=== PATIENT | female | born 1975 | race American Indian/Alaskan Native ===

== ENCOUNTER 2017-03-02 00:33 | Emergency (ER) | payer SELFPAY ==
[2017-03-02 03:14] VITALS: BP 159/108
== END 2017-03-02 03:12 | disposition left against medical advice (07) ==
LOC: ED 00:33
DX: K59.00 Constipation, unspecified (principal); K92.1 Melena; Z53.21 Procedure and treatment not carried out due to patient leaving prior to being seen by health care provider

== ENCOUNTER 2017-05-04 20:16 | Emergency (ER) | payer OTHER ==
[2017-05-04 21:20] LABS: Basophils % (Auto) 0.3 % (0.0-1.8); Eosinophils % (Auto) 0.6 % (0.0-4.3); Hematocrit 39.5 % (30.3-42.9); Hemoglobin 12.6 gm/dl (10.1-14.3); Mean Corpuscular HGB Conc 32 % (30-34); Mean Corpuscular Hemoglobin 26 pg (28-32); Mean Corpuscular Volume 83 fl (79-97); Platelet Count 176 K/mm3 (140-440); Red Blood Count 4.78 M/mm3 (3.65-5.03); Red Cell Distribution Width 16.4 % (13.2-15.2); White Blood Count 8.1 K/mm3 (4.5-11.0)
[2017-05-04 21:27] LABS: Bilirubin,Urine NEG (Negative); Blood,Urine LG (Negative); Ketones,Urine NEG (Negative); Leukocyte Esterase,Urine NEG (Negative); Mucus,Urine FEW /HPF; Nitrite,Urine NEG (Negative); Protein,Urine <15 mg/dL mg/dL (Negative); Urobilinogen,Urine < 2.0 mg/dL (<2.0); WBC,Urine < 1.0 /HPF (0.0-6.0)
[2017-05-04 21:46] LABS: Alanine Aminotransferase 12 units/L (7-56); Albumin 3.9 g/dL (3.9-5); Albumin/Globulin Ratio 1.2 %; Alkaline Phosphatase 60 units/L (35-129); Anion Gap 17 mmol/L; BUN/Creatinine Ratio 14.28; Blood Urea Nitrogen 10 mg/dL (7-17); Calcium 8.7 mg/dL (8.4-10.2); Carbon Dioxide 27 mmol/L (22-30); Chloride 98.9 mmol/L (98-107); Glucose 95 mg/dL (65-100); Lipase 42 units/L (13-60); Potassium 3.6 mmol/L (3.6-5.0); Sodium 139 mmol/L (137-145); Total Protein 7.1 g/dL (6.3-8.2)
[2017-05-05] MEDS ORDERED: CARAFATE PO ONE (06:29)
[2017-05-05] MEDS ORDERED: ALUM-MAG HYDROX-SIMETH 200-200-20MG/5ML PO ONE (06:29)
[2017-05-05] MEDS ORDERED: PEPCID PO ONE (06:29)
--- NOTE | 2017-05-05 06:30 | Emergency Department Report ---
ED General Adult HPI - General Chief complaint: Abdominal Pain Stated complaint: VAG BLEEDING/ABD PAIN Time Seen by Provider: 05/05/17 06:18 Source: patient, RN notes reviewed, old records reviewed Mode of arrival: Ambulatory Limitations: No Limitations - History of Present Illness Initial comments: This is a 42-year-old female. She is previously unknown to me. She has a past medical history of ovarian fibroids/uterine fibroids. Does not have a primary care doctor. Surgical history includes cholecystectomy. Patient presents to the ER with a complaint of epigastric abdominal pain, left lower quadrant and suprapubic abdominal pain. Epigastric abdominal pain has been intermittent for the past few weeks. It has no exacerbating or relieving factors. It does not radiate anywhere. There is no right lower quadrant pain. She endorses recent vigorous sexual intercourse with her partner, does not work condoms. There is no dyspareunia. No irritative or obstructive urinary symptoms. No chest pain, no shortness of breath, no leg pain, leg swelling. Does not take oral contraceptives, and she also reports resolved vaginal bleeding. -: Gradual Location: abdomen, genitals Severity scale (0 -10): 9 Quality: aching Consistency: intermittent Improves with: none Worsens with: none Associated Symptoms: denies: confusion, chest pain, cough, loss of appetite, malaise, nausea/vomiting, shortness of breath, syncope, weakness - Related Data Home Medications Medication Instructions Recorded Confirmed Last Taken Hydrochlorothiazide [HCTZ] 25 mg PO QDAY 03/23/16 03/27/16 Unknown Lisinopril [Zestril TAB] 10 mg PO QDAY 03/23/16 03/27/16 Unknown Previous Rx's Medication Instructions Recorded Last Taken Type Ibuprofen [Motrin 800 MG tab] 800 mg PO Q8HR PRN #20 tablet 03/28/16 Unknown Rx Fluconazole [Diflucan TAB] 150 mg PO ONCE #1 tablet 05/25/16 Unknown Rx Ibuprofen [Motrin 400 MG tab] 400 mg PO Q8H PRN #10 tablet 05/25/16 Unknown Rx HYDROcodone/APAP 5-325 [[place] 1 - 2 each PO Q6HR PRN #12 tablet 07/10/16 Unknown Rx 5-325 mg TAB] Acetaminophen [Tylenol Arthritis] 650 mg PO Q6HR PRN #30 tablet.er 05/05/17 Unknown Rx Dicyclomine [Bentyl] 10 mg PO QID PRN #20 capsule 05/05/17 Unknown Rx Ondansetron [Zofran Odt] 4 mg PO QID PRN #20 tab.rapdis 05/05/17 Unknown Rx Allergies Allergy/AdvReac Type Severity Reaction Status Date / Time No Known Allergies Allergy Unverified 05/25/16 11:07 ED Review of Systems ROS: Stated complaint: VAG BLEEDING/ABD PAIN Other details as noted in HPI Constitutional: denies: fever, malaise Eyes: denies: vision change ENT: denies: epistaxis Respiratory: denies: cough Cardiovascular: denies: chest pain Gastrointestinal: abdominal pain Genitourinary: abnormal menses. denies: urgency, dysuria Musculoskeletal: denies: back pain Skin: denies: lesions Neurological: denies: weakness ED Past Medical Hx - Past Medical History Hx Hypertension: Yes Additional medical history: uterine fibroids - Surgical History Hx Cholecystectomy: Yes (03/2013) Additional Surgical History: c/s x 2. tubal ligation 2002 - Social History Smoking Status: Never Smoker Substance Use Type: None - Medications Home Medications: Home Medications Medication Instructions Recorded Confirmed Last Taken Type Hydrochlorothiazide [HCTZ] 25 mg PO QDAY 03/23/16 03/27/16 Unknown History Lisinopril [Zestril TAB] 10 mg PO QDAY 03/23/16 03/27/16 Unknown History Ibuprofen [Motrin 800 MG tab] 800 mg PO Q8HR PRN #20 tablet 03/28/16 Unknown Rx Fluconazole [Diflucan TAB] 150 mg PO ONCE #1 tablet 05/25/16 Unknown Rx Ibuprofen [Motrin 400 MG tab] 400 mg PO Q8H PRN #10 tablet 05/25/16 Unknown Rx HYDROcodone/APAP 5-325 [[place] 1 - 2 each PO Q6HR PRN #12 tablet 07/10/16 Unknown Rx 5-325 mg TAB] Acetaminophen [Tylenol Arthritis] 650 mg PO Q6HR PRN #30 tablet.er 05/05/17 Unknown Rx Dicyclomine [Bentyl] 10 mg PO QID PRN #20 capsule 05/05/17 Unknown Rx Ondansetron [Zofran Odt] 4 mg PO QID PRN #20 tab.rapdis 05/05/17 Unknown Rx ED Physical Exam - General Limitations: No Limitations General appearance: alert, in no apparent distress - Head Head exam: Present: atraumatic, normocephalic - Eye Eye exam: Present: normal appearance, EOMI. Absent: nystagmus - ENT ENT exam: Present: normal exam, normal orophraynx, mucous membranes moist - Neck Neck exam: Present: normal inspection, full ROM. Absent: tenderness, meningismus - Respiratory Respiratory exam: Present: normal lung sounds bilaterally. Absent: respiratory distress, wheezes, rales, rhonchi, stridor, chest wall tenderness, accessory muscle use, decreased breath sounds, prolonged expiratory - Cardiovascular Cardiovascular Exam: Present: regular rate, normal rhythm, normal heart sounds. Absent: bradycardia, tachycardia, irregular rhythm, systolic murmur, diastolic murmur, rubs, gallop - GI/Abdominal GI/Abdominal exam: Present: soft, normal bowel sounds, other (there is minimal epigastric tenderness, there is left lower quadrant tenderness. There is no rebound, guarding or peritoneal signs). Absent: distended, guarding, rebound, rigid, pulsatile mass - External exam: Present: normal external exam Speculum exam: Present: vaginal bleeding. Absent: cervical discharge Bi-manual exam: Present: normal bi-manual exam, other (escorted by nurse JORDIN CHA). Absent: cervical motion tendernes, adnexal tenderness, adnexal mass, uterine enlargement, uterine tenderness - Extremities Exam Extremities exam: Present: normal inspection, full ROM, normal capillary refill. Absent: pedal edema, joint swelling, calf tenderness - Back Exam Back exam: Present: normal inspection, full ROM. Absent: tenderness, CVA tenderness (R), CVA tenderness (L), muscle spasm, paraspinal tenderness, vertebral tenderness - Neurological Exam Neurological exam: Present: alert, oriented X3, normal gait, other (Extraocular movements intact. Tongue midline. No facial droop. Facial sensation intact to light touch in the V1, V2, V3 distribution bilaterally. 5 and 5 strength in 4 extremities.. Sensation is intact to light touch in 4 extremities.). Absent : motor sensory deficit - Psychiatric Psychiatric exam: Present: normal affect, normal mood - Skin Skin exam: Present: warm, dry, intact, normal color. Absent: rash ED Course Vital Signs 05/04/17 05/05/17 05/05/17 20:33 03:47 04:37 Temperature 98.7 F 98.7 F 98.3 F Pulse Rate 90 84 73 Respiratory 17 18 18 Rate Blood Pressure 158/114 159/112 Blood Pressure [Left] Blood Pressure 156/84 [Right] O2 Sat by Pulse 99 100 99 Oximetry 05/05/17 05/05/17 05:17 07:20 Temperature 97.9 F Pulse Rate 82 Respiratory 18 20 Rate Blood Pressure Blood Pressure 162/96 [Left] Blood Pressure [Right] O2 Sat by Pulse 98 100 Oximetry ED Medical Decision Making - Lab Data Result diagrams: 05/04/17 20:52 05/04/17 20:48 Vital Signs 05/04/17 05/05/17 05/05/17 20:33 03:47 04:37 Temperature 98.7 F 98.7 F 98.3 F Pulse Rate 90 84 73 Respiratory 17 18 18 Rate Blood Pressure 158/114 159/112 Blood Pressure [Left] Blood Pressure 156/84 [Right] O2 Sat by Pulse 99 100 99 Oximetry 05/05/17 05/05/17 05:17 07:20 Temperature 97.9 F Pulse Rate 82 Respiratory 18 20 Rate Blood Pressure Blood Pressure 162/96 [Left] Blood Pressure [Right] O2 Sat by Pulse 98 100 Oximetry Lab Results 05/04/17 05/04/17 05/04/17 Range/Units 20:48 20:52 20:55 WBC 8.1 (4.5-11.0) K/mm3 RBC 4.78 (3.65-5.03) M/mm3 Hgb 12.6 (10.1-14.3) gm/dl Hct 39.5 (30.3-42.9) % MCV 83 (79-97) fl MCH 26 L (28-32) pg MCHC 32 (30-34) % RDW 16.4 H (13.2-15.2) % Plt Count 176 (140-440) K/mm3 Lymph % (Auto) 30.9 (13.4-35.0) % [place] % (Auto) 5.7 (0.0-7.3) % Eos % (Auto) 0.6 (0.0-4.3) % Baso % (Auto) 0.3 (0.0-1.8) % Lymph # 2.5 (1.2-5.4) K/mm3 [place] # 0.5 (0.0-0.8) K/mm3 Eos # 0.1 (0.0-0.4) K/mm3 Baso # 0.0 (0.0-0.1) K/mm3 Seg Neutrophils % 62.5 (40.0-70.0) % Seg Neutrophils # 5.1 (1.8-7.7) K/mm3 Sodium 139 (137-145) mmol/L Potassium 3.6 (3.6-5.0) mmol/L Chloride 98.9 (98-107) mmol/L Carbon Dioxide 27 (22-30) mmol/L Anion Gap 17 mmol/L BUN 10 (7-17) mg/dL Creatinine 0.7 (0.7-1.2) mg/dL Estimated GFR > 60 ml/min BUN/Creatinine Ratio 14.28 % Glucose 95 (65-100) mg/dL Calcium 8.7 (8.4-10.2) mg/dL Total Bilirubin 0.30 (0.1-1.2) mg/dL AST 18 (5-40) units/L ALT 12 (7-56) units/L Alkaline Phosphatase 60 (35-129) units/L Total Protein 7.1 (6.3-8.2) g/dL Albumin 3.9 (3.9-5) g/dL Albumin/Globulin Ratio 1.2 % Lipase 42 (13-60) units/L Urine Color Straw (Yellow) Urine Turbidity Clear (Clear) Urine pH 8.0 H (5.0-7.0) Ur Specific [place] 1.009 (1.003-1.030) Urine Protein <15 mg/dl (Negative) mg/dL Urine Glucose (UA) Neg (Negative) mg/dL Urine Ketones Neg (Negative) mg/dL Urine Blood Lg (Negative) Urine Nitrite Neg (Negative) Urine Bilirubin Neg (Negative) Urine Urobilinogen < 2.0 (<2.0) mg/dL Ur Leukocyte Esterase Neg (Negative) Urine WBC (Auto) < 1.0 (0.0-6.0) /HPF Urine RBC (Auto) 2.0 (0.0-6.0) /HPF U Epithel Cells (Auto) 1.0 (0-13.0) /HPF Urine Mucus Few /HPF Urine HCG, Qual Negative (Negative) - EKG Data -: EKG Interpreted by Me EKG shows normal: sinus rhythm Rate: normal - EKG Data When compared to previous EKG there are: no significant change Interpretation: no acute changes 05/05/17 07:34 normal sinus, 71 bpm, high left ventricular voltage, not morphologically consistent with STEMI, appears unchanged when compared to prior EKG from 2016. - Medical Decision Making Differential diagnosis: GERD, reflux, gastritis, pelvic inflammatory disease, constipation, urinary tract infection, ovarian cyst Dysfunctional uterine bleeding, uterine fibroids Assessment and plan: 41-year-old female with a complaint of epigastric pain, left lower quadrant abdominal pain, vaginal bleeding. She is afebrile with reassuring vital signs, with the exception of elevated blood pressure. No pulmonary embolus or DVT risk factors, low risk by well's criteria, perc negative. No right lower quadrant tenderness, she reports that she is defecating and urinating normally. The urinalysis is not consistent with urinary tract infection, and she felt improved after symptomatic therapy. Patient has already had an ultrasound at this facility within the past year, demonstrating uterine fibroids. 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 I don't believe the patient requires advanced imaging at this time. Her physical examination is not consistent with pelvic inflammatory disease. Low suspicion for acute coronary syndrome, low risk by Srini and heart score. The patient will be discharged with nonnarcotic pain medication, and she can follow up with her outpatient primary care doctor or fitting room maintenance mechanic. Return precautions are reviewed. Critical care attestation.: If time is entered above; I have spent that time in minutes in the direct care of this critically ill patient, excluding procedure time. ED Disposition Clinical Impression: Abdominal pain Disposition: DC-01 TO HOME OR SELFCARE Is pt being admited?: No Does the pt Need Aspirin: No Condition: Stable Instructions: Abdominal Pain (ED) Additional Instructions: Cultures were sent today, results will be available in the next 3-5 days. Have your primary care doctor or fitting room maintenance mechanic contact medical records department to obtain culture results. Avoid consumption of heavy/spicy foods. Avoid consumption of alcohol, Motrin, Naprosyn, ibuprofen, Aleve. Take the prescribed medications as required/directed. Follow-up with the primary care doctor or fitting room maintenance mechanic within the next 14 days. Return to the ER right away with new pain, worsened pain, migration of pain, fevers, chills, chest pain, confusion, intractable nausea or vomiting, inability to tolerate liquid feeds. Prescriptions: Acetaminophen [Tylenol Arthritis] 650 mg PO Q6HR PRN #30 tablet.er PRN Reason: Pain Dicyclomine [Bentyl] 10 mg PO QID PRN #20 capsule PRN Reason: Pain Ondansetron [Zofran Odt] 4 mg PO QID PRN #20 tab.rapdis PRN Reason: Nausea Referrals: ULI EPPERSON DO [Other] - 3-5 Days [facility] [Provider Group] - 3-5 Days Forms: Work/School Release Form(ED)
[2017-05-05 07:25] VITALS: BP 162/96
== END 2017-05-05 08:00 | disposition home or self-care (01) ==
LOC: ED 20:16
DX: R10.13 Epigastric pain (principal); R10.32 Left lower quadrant pain; I10 Essential (primary) hypertension
CPT/HCPCS: 36415; 80053; 81001; 81025; 83690; 85025; 87210; 87591; 93005; 93010; 99284

== ENCOUNTER 2020-01-10 02:09 | Emergency (ER) | payer OTHER ==
[2020-01-10] MEDS ORDERED: KETOROLAC 60 MG/2 ML INJ IM ONE (02:21)
[2020-01-10] MEDS ORDERED: predniSONE 20 MG TAB PO ONE (02:21)
--- NOTE | 2020-01-10 02:52 | XRay Report ---
LUMBAR SPINE, 2 VIEWS INDICATION / CLINICAL INFORMATION: Right lower back pain radiating to the right leg.. COMPARISON: None available. FINDINGS: Vertebral body heights and disc spaces are well-preserved. Alignment is normal. No fracture or signif icant degenerative change identified. IMPRESSION: No significant osseous abnormality. Signer Name: Ashley Muir MD Signed: 01/10/2020 2:48 AM Workstation Name: [id number]
--- NOTE | 2020-01-10 03:00 | Emergency Department Report ---
ED Back Pain/Injury HPI - General Chief Complaint: Back Pain/Injury Stated Complaint: BACK/LEG/LEFT SIDE PAIN Time Seen by Provider: 01/10/20 02:17 Source: patient Limitations: No Limitations - History of Present Illness Initial Comments: This is a 44-year-old female nontoxic, well nourished in appearance, no acute signs of distress presents to the ED with c/o of acute lower back pain. Patient stated that the past 3 months ago she had a ground level trip and fall and landed on her lower back. Patient states has history of sciatica nerve pain which is similar symptoms as today. Patient states that pain radiates through to his right lower extremity. Patient denies any other injuries or trauma. Denies any bladder or bowel instability. Patient denies any urinary symptoms. Denies any fever, chills, nausea, vomiting, headache, stiff neck, chest pain or shortness of breath. Patient denies any numbness or tingling. Denies any allergies. PMH includes HTN and she takes lisinopril and HCTZ and follows a primary care doctor for this. MD Complaint: back pain, fall -: month(s) Similar Symptoms Previously: Yes Radiation: right leg Severity: mild Severity scale (0 -10): 8 Quality: aching Consistency: intermittent Improves With: immobilization, sitting upright Worsens With: movement, walking Associated Symptoms: denies other symptoms. denies: confusion, weakness, chest pain, numbness, difficulty walking, cough, difficulty urinating, diaphoresis, incontinence, fever/chills, constipation, headaches, abdominal pain, loss of appetite, malaise, nausea/vomiting, rash, seizure, shortness of breath, syncope - Related Data Home Medications Medication Instructions Recorded Confirmed Last Taken hydroCHLOROthiazide [HCTZ] 25 mg PO QDAY 03/23/16 03/27/16 Unknown lisinopriL [Zestril TAB] 10 mg PO QDAY 03/23/16 03/27/16 Unknown Previous Rx's Medication Instructions Recorded Last Taken Type Ibuprofen [Motrin 800 MG tab] 800 mg PO Q8HR PRN #20 tablet 03/28/16 Unknown Rx Ibuprofen [Motrin 400 MG tab] 400 mg PO Q8H PRN #10 tablet 05/25/16 Unknown Rx HYDROcodone/APAP 5-325 [[place] 1 - 2 each PO Q6HR PRN #12 tablet 07/10/16 Unknown Rx 5-325 mg TAB] Ondansetron [Zofran Odt] 4 mg PO QID PRN #20 tab.rapdis 05/05/17 Unknown Rx Cyclobenzaprine [Flexeril] 10 mg PO TID PRN #10 tablet 07/26/18 Unknown Rx Naproxen Sodium [Aleve TAB] 220 mg PO Q8H PRN #12 tablet 07/26/18 Unknown Rx methylPREDNISolone [Medrol] 4 mg PO DAILY #1 tab.ds.pk 07/26/18 Unknown Rx Cyclobenzaprine [Flexeril] 10 mg PO QHS PRN #10 tablet 01/10/20 Unknown Rx Naproxen 500 mg PO Q12H PRN #12 tablet 01/10/20 Unknown Rx Allergies Allergy/AdvReac Type Severity Reaction Status Date / Time No Known Allergies Allergy Verified 01/10/20 02:13 ED Review of Systems ROS: Stated complaint: BACK/LEG/LEFT SIDE PAIN Other details as noted in HPI Constitutional: denies: chills, fever Eyes: denies: eye pain, eye discharge, vision change ENT: denies: ear pain, throat pain Respiratory: denies: cough, shortness of breath, wheezing Cardiovascular: denies: chest pain, palpitations Endocrine: no symptoms reported Gastrointestinal: denies: abdominal pain, nausea, diarrhea Genitourinary: denies: urgency, dysuria, discharge Musculoskeletal: back pain. denies: joint swelling, arthralgia Skin: denies: rash, lesions Neurological: denies: headache, weakness, paresthesias Psychiatric: denies: anxiety, depression Hematological/Lymphatic: denies: easy bleeding, easy bruising ED Past Medical Hx - Past Medical History Previous Medical History?: Yes Hx Hypertension: Yes Additional medical history: uterine fibroids - Surgical History Past Surgical History?: Yes Hx Cholecystectomy: Yes (03/2013) Additional Surgical History: c/s x 2. tubal ligation 2002 - Social History Smoking Status: Never Smoker Substance Use Type: None - Medications Home Medications: Home Medications Medication Instructions Recorded Confirmed Last Taken Type hydroCHLOROthiazide [HCTZ] 25 mg PO QDAY 03/23/16 03/27/16 Unknown History lisinopriL [Zestril TAB] 10 mg PO QDAY 03/23/16 03/27/16 Unknown History Ibuprofen [Motrin 800 MG tab] 800 mg PO Q8HR PRN #20 tablet 03/28/16 Unknown Rx Ibuprofen [Motrin 400 MG tab] 400 mg PO Q8H PRN #10 tablet 05/25/16 Unknown Rx HYDROcodone/APAP 5-325 [[place] 1 - 2 each PO Q6HR PRN #12 tablet 07/10/16 Unknown Rx 5-325 mg TAB] Ondansetron [Zofran Odt] 4 mg PO QID PRN #20 tab.rapdis 05/05/17 Unknown Rx Cyclobenzaprine [Flexeril] 10 mg PO TID PRN #10 tablet 07/26/18 Unknown Rx Naproxen Sodium [Aleve TAB] 220 mg PO Q8H PRN #12 tablet 07/26/18 Unknown Rx methylPREDNISolone [Medrol] 4 mg PO DAILY #1 tab.ds.pk 07/26/18 Unknown Rx Cyclobenzaprine [Flexeril] 10 mg PO QHS PRN #10 tablet 01/10/20 Unknown Rx Naproxen 500 mg PO Q12H PRN #12 tablet 01/10/20 Unknown Rx ED Physical Exam - General Limitations: No Limitations General appearance: alert, in no apparent distress - Head Head exam: Present: atraumatic, normocephalic - Eye Eye exam: Present: normal appearance - Neck Neck exam: Present: normal inspection, full ROM. Absent: tenderness, meningismus, lymphadenopathy - GI/Abdominal GI/Abdominal exam: Present: soft, normal bowel sounds. Absent: distended, tenderness, guarding, rebound, rigid, diminished bowel sounds - Extremities Exam Extremities exam: Present: normal inspection, full ROM, normal capillary refill. Absent: tenderness, joint swelling - Back Exam Back exam: Present: normal inspection, full ROM, paraspinal tenderness (lumbar paraspinal). Absent: tenderness, CVA tenderness (R), CVA tenderness (L), muscle spasm, vertebral tenderness, rash noted - Expanded Back Exam Expanded Back exam: Absent: saddle anesthesia Back exam: Negative Straight Leg Raising: Left, Right - Neurological Exam Neurological exam: Present: alert, oriented X3, normal gait - Psychiatric Psychiatric exam: Present: normal affect, normal mood - Skin Skin exam: Present: warm, dry, intact, normal color. Absent: rash ED Course Vital Signs 04/20/20 04/20/20 02:10 02:32 Temperature 98.1 F Pulse Rate 79 Respiratory 16 19 Rate Blood Pressure 178/108 O2 Sat by Pulse 100 Oximetry - Reevaluation(s) Reevaluation #1: 01/10/20 03:03 Patient is speaking in full sentences with no signs of distress noted. ED Medical Decision Making - Medical Decision Making This is a 44-year-old male that presents with low back strain. Patient is stable was examined by me. There is no spinal tenderness. There is no cauda equina syndrome during examination. No bladder or bowel instability. Xrays are unremarkable and dictated by the radiologist. Patient is notified of the xray results with no questions noted by the patient. Patient received Toradol 60 mg IM and prednisone in the ED which stated that her symptoms has resolved and subsided. Patient is discharged with muscle relaxant and Motrin. Patient was instructed not to operate any machinery while taking muscle relaxant as they cause her drowsiness. Patient was referred to Follow-up with a primary care doctor in 3-5 days or if symptoms worsen and continue return to emergency room as soon as possible. At time of discharge, the patient does not seem toxic or ill in appearance. No acute signs of distress noted. Patient agrees to discharge treatment plan of care. No further questions noted by the patient. Patient was notified about her blood pressure and was instructed to follow-up with PCP for further evaluation and treatment. According to ACEP: (1) in ED patients with asymptomatic markedly elevated blood pressure, routine screening for acute target organ injury (eg, serum creatinine, urinalysis, ECG) is not required. (1) In patients with asymptomatic markedly elevated blood pressure, routine ED medical intervention is not required. This chart is dictated with using [employer] Dictation Program. Critical care attestation.: If time is entered above; I have spent that time in minutes in the direct care of this critically ill patient, excluding procedure time. ED Disposition Clinical Impression: Low back strain Qualifiers: Encounter type: initial encounter Qualified Code(s): S39.012A - Strain of muscle, fascia and tendon of lower back, initial encounter Disposition: TO HOME OR SELFCARE Is pt being admited?: No Does the pt Need Aspirin: No Condition: Stable Instructions: Cyclobenzaprine (By mouth), Low Back Strain (ED) Additional Instructions: Follow-up with your primary care doctor in 3-5 days or if symptoms worsen such as bladder or bowel stability, chest pain, short of breath, numbness or tingling sensation in extremities, headache, dizziness, visual changes, nausea vomiting, or abdominal pain, return back to emergency room as was possible. Take Naproxen and Flexeril as prescribed. Do not operate heavy machinery while taking Flexeril due to sedation Prescriptions: Cyclobenzaprine [Flexeril] 10 mg PO QHS PRN #10 tablet PRN Reason: Muscle Spasm Naproxen 500 mg PO Q12H PRN #12 tablet PRN Reason: Pain , Severe (7-10) Referrals: PRIMARY CAREMD [Primary Care Provider] - 3-5 Days DHARA MCKEON MD [Staff Physician] - 3-5 Days [facility] [Provider Group] - 3-5 Days Forms: Work/School Release Form(ED)
[2020-01-10 03:28] VITALS: BP 194/117
== END 2020-01-10 03:26 | disposition home or self-care (01) ==
LOC: ED 02:09
DX: S39.012A Strain of muscle, fascia and tendon of lower back, initial encounter (principal); I10 Essential (primary) hypertension; Z90.49 Acquired absence of other specified parts of digestive tract; Z98.51 Tubal ligation status; W18.30XA Fall on same level, unspecified, initial encounter; Y93.89 Activity, other specified; Y92.89 Other specified places as the place of occurrence of the external cause; Y99.8 Other external cause status
CPT/HCPCS: 72100; 96372; 99283; J1885; J7512

== ENCOUNTER 2020-06-02 21:34 | Emergency (ER) | payer OTHER ==
[2020-06-02 22:21] VITALS: BP 143/92
[2020-06-02] MEDS ORDERED: KETOROLAC 30 MG/1 ML INJ IM ONE (23:03)
[2020-06-02] MEDS ORDERED: dexAMETHasone 20 MG/5 ML VIAL IM ONE (23:03)
[2020-06-02] MEDS ORDERED: ONDANSETRON 4 MG ODT TAB PO ONE (23:04)
[2020-06-02] MEDS ORDERED: oxyCODONE /ACETAMINOPHEN 5-325MG TAB PO ONE (23:04)
--- NOTE | 2020-06-03 00:03 | Emergency Department Report ---
ED Back Pain/Injury HPI - General Chief Complaint: Back Pain/Injury Stated Complaint: ELEVATED BLOOD PRESSURE, BACK AND RIGHT LEG PAIN Source: patient Limitations: No Limitations - History of Present Illness Initial Comments: Patient is a 44-year-old -Spanish female with a history of chronic low back pain and hypertension who presents to the ED with complaint of acute exacerbation of her chronic low back pain that radiates to the right leg for the last 3 days. Patient states that she has been taking her regular pain medications at home with no relief. Patient states that she works at [employer] and does perform heavy lifting and that this usually aggravates her pain. Patient states that she was evaluated by her primary care physician 3 days ago and was supposed to get injection of her lumbar spine but was not done because her blood pressure was high. Patient states that in the last 2 days her pain has worsened such that the medications have not worked and no matter the position or physical activity the pain is constant and persistent. Patient denies fall, traumatic injury, heavy lifting, dysuria, urinary frequency and urgency, abdominal pain, hematuria, numbness and tingling or weakness of lower extremities bilaterally, urinary or bowel incontinence, saddle paresthesia, chest pain or shortness of breath and abdominal pain. MD Complaint: back pain (chronic low back pain with sciatica), other (low back pain that radiates to right leg) -: Gradual, year(s) (many years) Similar Symptoms Previously: Yes Place: home Radiation: right leg Severity: severe Severity scale (0 -10): 8 Quality: sharp, aching Consistency: constant Improves With: none Worsens With: movement, sitting upright, walking Context: while lifting, turning/twisting, bending, other (chronic lumbar disc herniation) Associated Symptoms: denies other symptoms. denies: confusion, weakness, chest pain, numbness, difficulty walking, cough, difficulty urinating, diaphoresis, incontinence, fever/chills, constipation, headaches, abdominal pain, loss of appetite, malaise, nausea/vomiting, rash, seizure, shortness of breath, syncope Treatments Prior to Arrival: NSAIDS - Related Data Home Medications Medication Instructions Recorded Confirmed Last Taken hydroCHLOROthiazide [HCTZ] 25 mg PO QDAY 03/23/16 03/27/16 Unknown lisinopriL [Zestril TAB] 10 mg PO QDAY 03/23/16 03/27/16 Unknown Previous Rx's Medication Instructions Recorded Last Taken Type Ibuprofen [Motrin 800 MG tab] 800 mg PO Q8HR PRN #20 tablet 03/28/16 Unknown Rx Ibuprofen [Motrin 400 MG tab] 400 mg PO Q8H PRN #10 tablet 05/25/16 Unknown Rx HYDROcodone/APAP 5-325 [[place] 1 - 2 each PO Q6HR PRN #12 tablet 07/10/16 Unknown Rx 5-325 mg TAB] Ondansetron [Zofran Odt] 4 mg PO QID PRN #20 tab.rapdis 05/05/17 Unknown Rx Cyclobenzaprine [Flexeril] 10 mg PO TID PRN #10 tablet 07/26/18 Unknown Rx Naproxen Sodium [Aleve TAB] 220 mg PO Q8H PRN #12 tablet 07/26/18 Unknown Rx methylPREDNISolone [Medrol] 4 mg PO DAILY #1 tab.ds.pk 07/26/18 Unknown Rx Cyclobenzaprine [Flexeril] 10 mg PO QHS PRN #10 tablet 01/10/20 Unknown Rx Gabapentin 300 mg PO Q12H PRN #60 cap 06/03/20 Unknown Rx Naproxen 500 mg PO Q12H PRN #30 tablet 06/03/20 Unknown Rx methOCARBAMOL [Robaxin TAB] 500 mg PO Q12H PRN #30 tablet 06/03/20 Unknown Rx predniSONE [Deltasone] 60 mg PO QDAY #15 tab 06/03/20 Unknown Rx traMADoL [Ultram] 50 mg PO Q6HR PRN #12 tablet 06/03/20 Unknown Rx Allergies Allergy/AdvReac Type Severity Reaction Status Date / Time No Known Allergies Allergy Verified 01/10/20 02:13 ED Review of Systems ROS: Stated complaint: ELEVATED BLOOD PRESSURE, BACK AND RIGHT LEG PAIN Other details as noted in HPI Constitutional: denies: chills, fever Eyes: denies: eye pain, eye discharge, vision change ENT: denies: ear pain, throat pain Respiratory: denies: cough, shortness of breath, wheezing Cardiovascular: denies: chest pain, palpitations Endocrine: no symptoms reported Gastrointestinal: denies: abdominal pain, nausea, diarrhea Genitourinary: denies: urgency, dysuria, discharge Musculoskeletal: back pain (lower back pain), arthralgia (right thigh pain). denies: joint swelling Skin: denies: rash, lesions Neurological: denies: headache, weakness, paresthesias Psychiatric: denies: anxiety, depression Hematological/Lymphatic: denies: easy bleeding, easy bruising ED Past Medical Hx - Past Medical History Previous Medical History?: Yes Hx Hypertension: Yes Additional medical history: uterine fibroids,. Sciatica, Chronic Back pain (3 buldging disc) - Surgical History Past Surgical History?: Yes Hx Cholecystectomy: Yes (03/2013) Additional Surgical History: c/s x 2. tubal ligation 2002 - Social History Smoking Status: Never Smoker Substance Use Type: None - Medications Home Medications: Home Medications Medication Instructions Recorded Confirmed Last Taken Type hydroCHLOROthiazide [HCTZ] 25 mg PO QDAY 03/23/16 03/27/16 Unknown History lisinopriL [Zestril TAB] 10 mg PO QDAY 03/23/16 03/27/16 Unknown History Ibuprofen [Motrin 800 MG tab] 800 mg PO Q8HR PRN #20 tablet 03/28/16 Unknown Rx Ibuprofen [Motrin 400 MG tab] 400 mg PO Q8H PRN #10 tablet 05/25/16 Unknown Rx HYDROcodone/APAP 5-325 [[place] 1 - 2 each PO Q6HR PRN #12 tablet 07/10/16 Unknown Rx 5-325 mg TAB] Ondansetron [Zofran Odt] 4 mg PO QID PRN #20 tab.rapdis 05/05/17 Unknown Rx Cyclobenzaprine [Flexeril] 10 mg PO TID PRN #10 tablet 07/26/18 Unknown Rx Naproxen Sodium [Aleve TAB] 220 mg PO Q8H PRN #12 tablet 07/26/18 Unknown Rx methylPREDNISolone [Medrol] 4 mg PO DAILY #1 tab.ds.pk 07/26/18 Unknown Rx Cyclobenzaprine [Flexeril] 10 mg PO QHS PRN #10 tablet 01/10/20 Unknown Rx Gabapentin 300 mg PO Q12H PRN #60 cap 06/03/20 Unknown Rx Naproxen 500 mg PO Q12H PRN #30 tablet 06/03/20 Unknown Rx methOCARBAMOL [Robaxin TAB] 500 mg PO Q12H PRN #30 tablet 06/03/20 Unknown Rx predniSONE [Deltasone] 60 mg PO QDAY #15 tab 06/03/20 Unknown Rx traMADoL [Ultram] 50 mg PO Q6HR PRN #12 tablet 06/03/20 Unknown Rx ED Physical Exam - General Limitations: No Limitations General appearance: alert, in no apparent distress - Head Head exam: Present: atraumatic, normocephalic, normal inspection - Eye Eye exam: Present: normal appearance, PERRL, EOMI Pupils: Present: normal accommodation - ENT ENT exam: Present: normal exam, normal orophraynx, mucous membranes moist, TM's normal bilaterally, normal external ear exam - Neck Neck exam: Present: normal inspection, full ROM - Respiratory Respiratory exam: Present: normal lung sounds bilaterally. Absent: respiratory distress, wheezes, rales, rhonchi, chest wall tenderness, accessory muscle use, decreased breath sounds, prolonged expiratory - Cardiovascular Cardiovascular Exam: Present: regular rate, normal rhythm, normal heart sounds. Absent: systolic murmur, diastolic murmur, rubs, gallop - GI/Abdominal GI/Abdominal exam: Present: soft, normal bowel sounds. Absent: tenderness, guarding, rebound, hyperactive bowel sounds, hypoactive bowel sounds - Extremities Exam Extremities exam: Present: normal inspection, full ROM, tenderness (Palpable right hip and thigh tenderness), normal capillary refill - Back Exam Back exam: Present: normal inspection, full ROM, tenderness (Palpable lumbosacral paraspinal musculoskeletal tenderness), muscle spasm, paraspinal tenderness. Absent: CVA tenderness (R), vertebral tenderness - Neurological Exam Neurological exam: Present: alert, oriented X3, CN II-XII intact, normal gait, reflexes normal - Psychiatric Psychiatric exam: Present: normal affect, normal mood - Skin Skin exam: Present: warm, dry, intact, normal color. Absent: rash ED Course Vital Signs 06/02/20 22:19 Temperature 98.2 F Pulse Rate 63 Respiratory 16 Rate Blood Pressure 143/92 O2 Sat by Pulse 100 Oximetry ED Medical Decision Making - Medical Decision Making This is a 44-year-old -Spanish female with a history of chronic low back pain and hypertension who presents to the ED with complaint of acute exacerbation of her chronic low back pain that radiates to the right leg for the last 3 days. Patient states that she has been taking her regular pain medications at home with no relief. Patient states that she works at [employer] and does perform heavy lifting and that this usually aggravates her pain. Patient states that she was evaluated by her primary care physician 3 days ago and was supposed to get injection of her lumbar spine but was not done because her blood pressure was high. Patient states that in the last 2 days her pain has worsened such that the medications have not worked and no matter the position or physical activity the pain is constant and persistent. In the ED, patient is alert and oriented x3 and is not in distress but appears to be in significant pain. Patient was treated in the ED for pain and on reevaluation, patient's pain is well controlled medications. Patient will discharge home on medications and advised to follow-up with her primary care physician in 5 to 7 days for reevaluation or return to the ED immediately if symptoms get worse. - Differential Diagnosis Sciatica; Chronic low back pain; muscle spasm Critical care attestation.: If time is entered above; I have spent that time in minutes in the direct care of this critically ill patient, excluding procedure time. ED Disposition Clinical Impression: Spasm of muscle of lower back Chronic low back pain with right-sided sciatica Qualifiers: Back pain laterality: right Qualified Code(s): M54.41 - Lumbago with sciatica, right side; G89.29 - Other chronic pain Disposition: DC-01 TO HOME OR SELFCARE Is pt being admited?: No Does the pt Need Aspirin: No Condition: Stable Instructions: Lumbar Radiculopathy (ED), Muscle Spasm (ED), Chronic Back Pain (ED) Additional Instructions: Take medications with food, drink plenty of fluids and follow-up with your primary care physician in 7 to 10 days for reevaluation. Return to the ED immediately if symptoms get worse. Prescriptions: predniSONE [Deltasone] 60 mg PO QDAY #15 tab Gabapentin 300 mg PO Q12H PRN #60 cap PRN Reason: Muscle Spasm Naproxen 500 mg PO Q12H PRN #30 tablet PRN Reason: Pain , Severe (7-10) methOCARBAMOL [Robaxin TAB] 500 mg PO Q12H PRN #30 tablet PRN Reason: Muscle Spasm traMADoL [Ultram] 50 mg PO Q6HR PRN #12 tablet PRN Reason: Pain Referrals: DHARA MCKEON MD [Staff Physician] - 3-5 Days Forms: Work/School Release Form(ED) Time of Disposition: 00:05 Print Language: [place]
== END 2020-06-03 00:50 | disposition home or self-care (01) ==
LOC: ED 21:34
DX: M62.830 Muscle spasm of back (principal); M54.41 Lumbago with sciatica, right side; G89.29 Other chronic pain; I10 Essential (primary) hypertension; Z98.51 Tubal ligation status; Z90.49 Acquired absence of other specified parts of digestive tract; Z79.899 Other long term (current) drug therapy
CPT/HCPCS: 96372; 99282; J1100; J1885; Q0162

== ENCOUNTER 2020-11-16 02:54 | Emergency (ER) | payer OTHER ==
[2020-11-16] MEDS ORDERED: GABAPENTIN 300 MG CAP PO ONE (03:26)
[2020-11-16] MEDS ORDERED: KETOROLAC 30 MG/1 ML INJ IM ONE (03:26)
[2020-11-16] MEDS ORDERED: dexAMETHasone 20 MG/5 ML VIAL IM ONE (03:26)
--- NOTE | 2020-11-16 04:49 | Emergency Department Report ---
ED Back Pain/Injury HPI - General Chief Complaint: Back Pain/Injury Stated Complaint: LOWER BACK/LEG MUSCLE SPASM/HIGH BP Source: patient Limitations: No Limitations - History of Present Illness Initial Comments: Patient is a 45-year-old -[place] female with a history of chronic low back pain and sciatica due to degenerative lumbar disc disease and hypertension who presents to the ED with acute exacerbation of her chronic low back pain that radiates to the lower extremities bilaterally for the last 1 week. Patient denies dizziness, syncope, dysuria, urinary frequency and urgency, chest pain, shortness of breath, abdominal pain, vaginal bleeding, vaginal discharge, cough, change in vision or fall, heavy lifting and traumatic injury. MD Complaint: back pain, other (bilateral lower extremity numbness and tingling) -: Gradual, month(s) (6) Similar Symptoms Previously: Yes (chronic sciatica) Place: home Radiation: left leg, right leg Severity: severe Severity scale (0 -10): 9 Quality: sharp, aching Consistency: constant Improves With: none Worsens With: movement, walking Context: while lifting, turning/twisting, fall Associated Symptoms: denies other symptoms. denies: confusion, weakness, chest pain, numbness, difficulty walking, cough, difficulty urinating, diaphoresis, incontinence, fever/chills, constipation, headaches, abdominal pain, loss of appetite, malaise, nausea/vomiting, rash, seizure, shortness of breath, syncope, other - Related Data Home Medications Medication Instructions Recorded Confirmed Last Taken hydroCHLOROthiazide [HCTZ] 25 mg PO QDAY 03/23/16 03/27/16 Unknown lisinopriL [Zestril TAB] 10 mg PO QDAY 03/23/16 03/27/16 Unknown Previous Rx's Medication Instructions Recorded Last Taken Type Ibuprofen [Motrin 400 MG tab] 400 mg PO Q8H PRN #10 tablet 05/25/16 Unknown Rx HYDROcodone/APAP 5-325 [[place] 1 - 2 each PO Q6HR PRN #12 tablet 07/10/16 Unknown Rx 5-325 mg TAB] Ondansetron [Zofran Odt] 4 mg PO QID PRN #20 tab.rapdis 05/05/17 Unknown Rx Cyclobenzaprine [Flexeril] 10 mg PO TID PRN #10 tablet 07/26/18 Unknown Rx Naproxen Sodium [Aleve TAB] 220 mg PO Q8H PRN #12 tablet 07/26/18 Unknown Rx methylPREDNISolone [Medrol] 4 mg PO DAILY #1 tab.ds.pk 07/26/18 Unknown Rx Cyclobenzaprine [Flexeril] 10 mg PO QHS PRN #10 tablet 01/10/20 Unknown Rx Naproxen 500 mg PO Q12H PRN #30 tablet 06/03/20 Unknown Rx Gabapentin 300 mg PO Q12H PRN #60 cap 11/16/20 Unknown Rx Ibuprofen [Motrin 800 MG tab] 800 mg PO Q8HR PRN #30 tablet 11/16/20 Unknown Rx methOCARBAMOL [Robaxin TAB] 500 mg PO Q12H PRN #30 tablet 11/16/20 Unknown Rx predniSONE [Deltasone] 60 mg PO QDAY #15 tab 11/16/20 Unknown Rx traMADoL [Ultram 50 MG tab] 50 mg PO Q6HR PRN #12 tablet 11/16/20 Unknown Rx Allergies Allergy/AdvReac Type Severity Reaction Status Date / Time No Known Allergies Allergy Verified 01/10/20 02:13 ED Review of Systems ROS: Stated complaint: LOWER BACK/LEG MUSCLE SPASM/HIGH BP Other details as noted in HPI Constitutional: denies: chills, fever Eyes: denies: eye pain, eye discharge, vision change ENT: denies: ear pain, throat pain Respiratory: denies: cough, shortness of breath, wheezing Cardiovascular: denies: chest pain, palpitations Endocrine: no symptoms reported Gastrointestinal: denies: abdominal pain, nausea, vomiting, diarrhea Genitourinary: denies: urgency, dysuria, discharge Musculoskeletal: back pain (lower), arthralgia (lower extremity). denies: joint swelling Skin: denies: rash, lesions Neurological: denies: headache, weakness, paresthesias Psychiatric: denies: anxiety, depression Hematological/Lymphatic: denies: easy bleeding, easy bruising ED Past Medical Hx - Past Medical History Previous Medical History?: Yes Hx Hypertension: Yes Additional medical history: uterine fibroids,. Sciatica, Chronic Back pain (3 buldging disc) - Surgical History Past Surgical History?: Yes Hx Cholecystectomy: Yes (03/2013) Additional Surgical History: c/s x 2. tubal ligation 2002 - Social History Smoking Status: Never Smoker Substance Use Type: None - Medications Home Medications: Home Medications Medication Instructions Recorded Confirmed Last Taken Type hydroCHLOROthiazide [HCTZ] 25 mg PO QDAY 03/23/16 03/27/16 Unknown History lisinopriL [Zestril TAB] 10 mg PO QDAY 03/23/16 03/27/16 Unknown History Ibuprofen [Motrin 400 MG tab] 400 mg PO Q8H PRN #10 tablet 05/25/16 Unknown Rx HYDROcodone/APAP 5-325 [[place] 1 - 2 each PO Q6HR PRN #12 tablet 07/10/16 Unknown Rx 5-325 mg TAB] Ondansetron [Zofran Odt] 4 mg PO QID PRN #20 tab.rapdis 05/05/17 Unknown Rx Cyclobenzaprine [Flexeril] 10 mg PO TID PRN #10 tablet 07/26/18 Unknown Rx Naproxen Sodium [Aleve TAB] 220 mg PO Q8H PRN #12 tablet 07/26/18 Unknown Rx methylPREDNISolone [Medrol] 4 mg PO DAILY #1 tab.ds.pk 07/26/18 Unknown Rx Cyclobenzaprine [Flexeril] 10 mg PO QHS PRN #10 tablet 01/10/20 Unknown Rx Naproxen 500 mg PO Q12H PRN #30 tablet 06/03/20 Unknown Rx Gabapentin 300 mg PO Q12H PRN #60 cap 11/16/20 Unknown Rx Ibuprofen [Motrin 800 MG tab] 800 mg PO Q8HR PRN #30 tablet 11/16/20 Unknown Rx methOCARBAMOL [Robaxin TAB] 500 mg PO Q12H PRN #30 tablet 11/16/20 Unknown Rx predniSONE [Deltasone] 60 mg PO QDAY #15 tab 11/16/20 Unknown Rx traMADoL [Ultram 50 MG tab] 50 mg PO Q6HR PRN #12 tablet 11/16/20 Unknown Rx ED Physical Exam - General Limitations: No Limitations General appearance: alert, in no apparent distress - Head Head exam: Present: atraumatic, normocephalic, normal inspection - Eye Eye exam: Present: normal appearance, PERRL, EOMI Pupils: Present: normal accommodation - ENT ENT exam: Present: normal exam, normal orophraynx, mucous membranes moist, TM's normal bilaterally, normal external ear exam - Neck Neck exam: Present: normal inspection, full ROM - Respiratory Respiratory exam: Present: normal lung sounds bilaterally. Absent: respiratory distress, wheezes, rales, rhonchi, chest wall tenderness, accessory muscle use, decreased breath sounds, prolonged expiratory - Cardiovascular Cardiovascular Exam: Present: regular rate, normal rhythm, normal heart sounds. Absent: systolic murmur, diastolic murmur, rubs, gallop - GI/Abdominal GI/Abdominal exam: Present: soft, normal bowel sounds. Absent: distended, tenderness, guarding, rebound, hyperactive bowel sounds, hypoactive bowel sounds, organomegaly - Extremities Exam Extremities exam: Present: normal inspection, full ROM, normal capillary refill - Back Exam Back exam: Present: normal inspection, full ROM, tenderness (Palpable lumbosacral paraspinal musculoskeletal tenderness), muscle spasm, paraspinal tenderness. Absent: CVA tenderness (R), vertebral tenderness - Neurological Exam Neurological exam: Present: alert, oriented X3, CN II-XII intact, normal gait, reflexes normal - Psychiatric Psychiatric exam: Present: normal affect, normal mood - Skin Skin exam: Present: warm, dry, intact, normal color. Absent: rash ED Medical Decision Making - Medical Decision Making This is a 45-year-old -[place] female with a history of chronic low back pain and sciatica due to degenerative lumbar disc disease and hypertension who presents to the ED with acute exacerbation of her chronic low back pain that radiates to the lower extremities bilaterally for the last 1 week. In the ED, patient is alert and oriented x3 and is not in any distress. Patient was treated for pain in the ED and on reevaluation, patient's pain is well controlled with medications. Patient was discharged home on pain medications and advised follow-up with her primary care physician in 5 to 7 days for reevaluation or return to the ED immediately if symptoms get worse. - Differential Diagnosis sciatica; chronic back pain; muscle spasm; lumbar Critical care attestation.: If time is entered above; I have spent that time in minutes in the direct care of this critically ill patient, excluding procedure time. ED Disposition Clinical Impression: Spasm of muscle of lower back Chronic low back pain with sciatica Qualifiers: Back pain laterality: bilateral Sciatica laterality: bilateral sciatica Qualified Code(s): M54.42 - Lumbago with sciatica, left side; M54.41 - Lumbago with sciatica, right side; G89.29 - Other chronic pain Disposition: DC- TO HOME OR SELFCARE Is pt being admited?: No Does the pt Need Aspirin: No Condition: Stable Instructions: Sciatica, [id number], Chronic Back Pain, [id number], Muscle Cramps and Spasms, [id number] Additional Instructions: Your symptoms are likely due to acute exacerbation of your chronic sciatica. Therefore take medications with food, drink plenty of fluids and follow-up with your primary care physician in 5 to 7 days for reevaluation. Return to the ED immediately if symptoms get worse. Prescriptions: predniSONE [Deltasone] 60 mg PO QDAY #15 tab Gabapentin 300 mg PO Q12H PRN #60 cap PRN Reason: Muscle Spasm Ibuprofen [Motrin 800 MG tab] 800 mg PO Q8HR PRN #30 tablet PRN Reason: Analgesia methOCARBAMOL [Robaxin TAB] 500 mg PO Q12H PRN #30 tablet PRN Reason: Muscle Spasm traMADoL [Ultram 50 MG tab] 50 mg PO Q6HR PRN #12 tablet PRN Reason: Pain Referrals: PRIMARY CARE,MD [Primary Care Provider] - 3-5 Days Forms: Work/School Release Form(ED) Time of Disposition: 05:00 Print Language: FAROESE
[2020-11-16 05:49] VITALS: BP 165/103
== END 2020-11-16 05:35 | disposition home or self-care (01) ==
LOC: ED 02:54
DX: M54.40 Lumbago with sciatica, unspecified side (principal); M62.830 Muscle spasm of back; I10 Essential (primary) hypertension; Z98.51 Tubal ligation status; Z98.890 Other specified postprocedural states; Z79.1 Long term (current) use of non-steroidal anti-inflammatories (NSAID); Z79.899 Other long term (current) drug therapy
CPT/HCPCS: 96372; 99282; J1100; J1885